=== PATIENT | female | born 1935 | race Caucasian/White ===

== ENCOUNTER → 2016-11-29 | Day surgery (SDC) | payer MEDICARE ==
[~2016-11-29] VITALS: Ht 160 cm; Wt 58.0 kg
[~2016-11-29] MED LIST: ACETAMINOPHEN/HYDROcodone 325 MG/5 MG TAB PO PRN; ASPI325T PO; DO NOT ADM ANY ANTICOAGULANT DRUGS XX PRN; FAMOTIDINE 20 MG/2 ML VIAL ONE; HYDR-3111 PO; INSULIN HUMAN REGULAR 1,000 UNITS/10 ML VIAL SQ PRN; LACTATED RINGER'S 1000 ML IV SCH; METOPROLOL TARTRATE 25 MG TAB PO PRN; ONDANSETRON HCL 4 MG/2 ML VIAL IV PUSH PRN; PHENYLEPH/NS 1000 MCG/10 ML SYR IV ONE; PROPOFOL 200 MG/20 ML AMP IV ONE; SODIUM CHLORID 0.9% 500 ML IV SCH; TIMO5SOL EACH EYE; TYLETAB34 PO
[2016-11-29 08:59] LABS: MEAN CORPUSCULAR HGB CONC 28.1 % (32.0-36.0)
[2016-11-29 09:36] VITALS: BP 113/49; PULSE 63; RESP 16; TEMP 97.9; O2SAT 100
--- NOTE | 2016-11-29 09:36 | RADRPT ---
EXAM DATE/TIME: 11/29/2016 09:16 [place] COMPARISON: ABDOMEN KUB ONLY, May 10, 2016, 9:41. INDICATIONS : Pre op for lithotripsy MEDICAL HISTORY : None. SURGICAL HISTORY : Cholecystectomy. Appendectomy. Hysterectomy. ENCOUNTER: Initial ACUITY: 1 day PAIN SCORE: 4/10 LOCATION: Bilateral abdomen FINDINGS: Supine view of the abdomen was performed. There are bilateral renal calculi, right greater than left. The stone burden is definitely less when compared to the April 2016 exam, however-especially on the left. No stones along the expected course of the ureters there are probable phleboliths in the deep pelvis. Coil-shaped metallic densities suggest prior anterior abdominal wall hernia mesh repair. Levo scoliosis of the thoracolumbar spine with associated degenerative changes. CONCLUSION: Bilateral renal calculi, right greater than left. Raúl Griffin MD on November 29, 2016 at 9:31 Board Certified Radiologist. This report was verified electronically.
[2016-11-29 09:53] LABS: AUTOMATED NEUTROPHIL # 2.2 TH/MM3 (1.8-7.7); BASOPHIL % 0.8 % (0.0-2.0); EOSINOPHIL % 1.3 % (0.0-4.0); HEMATOCRIT 25.1 % (35.0-46.0); LYMPH % 16.2 % (9.0-44.0); LYMPHOCYTE # 0.5 TH/MM3 (1.0-4.8); MEAN CELL VOLUME 71.2 FL (80.0-100.0); MONO % 9.3 % (0.0-8.0); NEUT % 72.4 % (16.0-70.0); PLATELET COUNT 257 TH/MM3 (150-450); RED BLOOD COUNT 3.53 MIL/MM3 (4.00-5.30); RED CELL DISTRIBUTION WIDTH 24.7 % (11.6-17.2)
[2016-11-29 09:55] LABS: HEMO FLAGS AUTO DIFF
[2016-11-29 10:26] LABS: OVALOCYTES 2+ (NORMAL); SCAN/DIFF AUTO DIFF CONFIRMED; TEARDROP RBCS 1+ (NORMAL)
--- NOTE | 2016-11-29 12:35 | PD.OP ---
Operative Report Date of Surgery: Nov 29, 2016 Preoperative Diagnosis: (1) Renal calculus, left Postoperative Diagnosis: (1) Renal calculus, left Procedure: Extracorporeal shockwave lithotripsy left renal calculi Anesthesia: General Surgeon: [employer] Curator(s): None Operation and Findings: Indication for procedure: Case of a pleasant 81-year-old female with multiple left renal calculi who presents today for shockwave lithotripsy. Operative procedure in detail: Patient was brought to the operating room suite and placed supine on the lithotripsy table. She was then placed under general anesthesia. After an appropriate timeout was undertaken I proceeded with localizing the patient's left renal calculi with fluoroscopy. The patient next received extracorporeal shockwave lithotripsy utilizing the Fernando piezolith 3000 device. She received a total of 3000 shocks with a maximum power level setting of 20. The renal calculi spread out and were tourist camp attendant in intensity consistent with fragmentation. Patient was subsequently transferred to the PACU in satisfactory condition having tolerated the procedure well. Cornell Power MD Nov 29, 2016 12:34
[2016-11-29 14:10] VITALS: BP 117/59; PULSE 74; RESP 16; TEMP 96.8; O2SAT 96
== END | disposition home or self-care (01) ==
LOC: HSDC 08:24
PROVIDERS: ATTEND Urology
DX: N20.0 Calculus of kidney (principal)
CPT/HCPCS: 00873; 50590; 74000; 85025; J2370; J7120